=== PATIENT | female | born 1975 | race Hispanic/Latino ===

== ENCOUNTER 2018-11-21 20:24 | Inpatient (IN) | payer OTHER, SELFPAY ==
[~2018-11-21 20:24] MED LIST: Iopamidol 370 76% 100 ML VIAL ONE
[2018-11-21] MEDS ORDERED: Ondansetron ODT 4 MG TAB ONE (20:37)
[2018-11-21 20:58] LABS: Bacteria/HPF None Seen HPF (None Seen); Bilirubin Negative (Negative); Blood, Urine Negative (Negative); Clarity Clear (Clear); Glucose, Urine (Dipstick) Greater than 1000 mg/dL (Negative); Leukocyte Negative Leu/uL (Negative); Nitrite Negative (Negative); Protein, Urine (Dipstick) 50 mg/dL (Neg-Trace)
[2018-11-21 21:21] LABS: #Lymphocytes 1.6 thou/uL (1.20-3.40); #Monocytes 0.6 thou/uL (0.11-0.59); #Neutrophils 13.1 thou/uL (1.40-6.50); %Basophils 0.3 % (0.0-1.0); %Eosinophils 0.1 % (0.0-10.0); %Lymphocytes 10.6 % (21.0-51.0); %Monocytes 3.9 % (0.0-10.0); %Neutrophils 85.1 % (42.0-75.0); Hemoglobin 8.6 g/dL (12.0-16.0); Hypochromia MODERATE=16-30 cells (100X) (0-5/hpf); MDiff Complete? YES; Mean Corpuscular HGB CONC 28.8 g/dL (32.0-36.0); Mean Corpuscular Hemoglobin 17.9 pg (27.0-31.0); Mean Corpuscular Volume 62.1 fL (78.0-98.0); Mean Platelet Volume 8.4 fL (7.4-10.4); Microcytosis SLIGHT = 6-15 cells (100X) (0-5/hpf); Platelet Count 156 thou/uL (130-400); Platelet Morphology Comment Appears Adequate; RBC Distribution Width 19.7 % (11.5-14.5); Red Blood Cell (RBC) Count 4.82 mill/uL (4.20-5.40); Reflex for Review?? YES; White Blood Cell (WBC) Count 15.3 thou/uL (4.8-10.8)
[2018-11-21 21:22] LABS: ALT (SGPT) 30 U/L (8-55); AST (SGOT) 20 U/L (5-34); Albumin 4.4 g/dL (3.5-5.0); Alkaline Phosphatase 116 U/L (40-150); Anion Gap 14 mmol/L (10-20); BUN (Urea Nitrogen) 9 mg/dL (7.0-18.7); Bilirubin, Total 0.9 mg/dL (0.2-1.2); Calc. Creatinine Clearance 0 mL/min (70-130); Calcium 9.4 mg/dL (7.8-10.44); Carbon Dioxide 22 mmol/L (22-29); Chloride 100 mmol/L (98-107); Estimated GFR-MDRD 90; Globulin 4.6 g/dL (2.4-3.5); Glucose 205 mg/dL (70-105); Lipase 5 U/L (8-78); Potassium 3.6 mmol/L (3.5-5.1); Sodium 132 mmol/L (136-145)
[2018-11-21 21:54] LABS: BHCG - Serum Negative (NEGATIVE); Pregs Control Background? CLEAR/WHITE (CLR/WHITE); Pregs Control Bar Appear? YES (CONTROL BAR)
[2018-11-21] MEDS ORDERED: Morphine 4 MG/ML VIAL ONE (22:07)
--- NOTE | 2018-11-21 22:26 | CT ---
CT Abdomen Pelvis W Con History: Right lower quadrant pain Comparison: None. Findings: Lung bases are clear. No pericardial effusion. Diffuse hepatic steatosis. Spleen pancreas adrenal glands are unremarkable. The appendix is dilated with periappendiceal inflamm ation. No evidence for a macro perforation. No free air. No periappendiceal collection. The appendix extends first craniad before turning posterior and caudad in the pelvis deep to the ceca l apex abutting the right ovary. Impression: Acute appendicitis as described. No evidence for macroperforation. The appendix extends f irst craniad before turning posterior and caudad in the pelvis deep to the cecal apex abutting the right ovary.
[2018-11-21] MEDS ORDERED: Piperacillin/Tazobactam 4.5 GM VIAL ONE (22:50)
[2018-11-21] MEDS ORDERED: hydrALAZINE 20 MG/ML VIAL SLOW IVP PRN (23:50)
[2018-11-21] MEDS ORDERED: Dextrose 50% Abboject 50 ML SYRINGE SLOW IVP PRN (23:50)
[2018-11-21] MEDS ORDERED: Promethazine HCl 25 MG/ML VIAL IM PRN (23:50)
[2018-11-21] MEDS ORDERED: Dextrose 5% in Water 1,000 ML IV PRN (23:50)
[2018-11-21] MEDS ORDERED: Acetaminophen 325 MG TAB PO PRN (23:50)
[2018-11-21] MEDS ORDERED: Morphine 2 MG/ML SYRINGE SLOW IVP PRN (23:50)
[2018-11-21] MEDS ORDERED: Ondansetron PF 4 MG/2 ML Vial IVP PRN (23:50)
[2018-11-21] MEDS ORDERED: Piperacillin/Tazobactam 3.375 GM in Sodium Chloride 0.9% 100 ML IVPB SCH (23:59)
--- NOTE | 2018-11-22 00:18 | HP ---
This is Hiren Moy PA-C dictating a report for Shun Daniel DO. REQUESTING PHYSICIAN: Abraham Sanchez MD ATTENDING SURGEON: Shun Daniel DO HISTORY OF PRESENT ILLNESS: The patient is a 42-year-old woman, who presented to the emergency department with a 3-day onset of abdominal pain that over the past few days has increased. Yesterday, the patient's pain settled in her right lower quadrant and she started having some nausea and vomiting. Denies fever or chills. Denies other ill contacts. Does have some anorexia secondary to her nausea. The patient underwent evaluation here and was noted to have acute appendicitis by CT at which time we were asked to evaluate the patient for admission and discuss surgical options. ALLERGIES: NONE. CURRENT MEDICATIONS: None. The patient should be on metformin, but she is currently noncompliant. PAST MEDICAL HISTORY: Type 2 diabetes. PAST SURGICAL HISTORY: x4. SOCIAL HISTORY: The patient denies drug, tobacco, or alcohol use. She lives at home with family. REVIEW OF SYSTEMS: 10-point review of systems is negative as otherwise stated. PHYSICAL EXAMINATION: VITAL SIGNS: Blood pressure 135/81, heart rate 90, respirations 18, oxygen saturation 100% on room air, and temperature is 98.8. GENERAL: The patient is resting comfortably in bed. She is awake, alert, conversant. The patient speaks adequate Norwegian, supervisor coin machine was not required. HEENT: Head is normocephalic, atraumatic. Eyes, extraocular motion intact. PERRLA bilaterally. Ears are atraumatic without discharge. Nose is atraumatic without discharge. Oropharynx is clear. NECK: Nontender. Trachea is midline. Neck is supple. There is no lymphadenopathy. LUNGS: Clear to auscultation with good inspiratory and expiratory effort. HEART: Regular rate and rhythm. ABDOMEN: Soft, flat, tender in the right lower quadrant, both with palpation and rebound with slight Rovsing sign. EXTREMITIES: Neurovascularly intact x4. LABORATORY FINDINGS: White blood cell count 15.3, hemoglobin 8.6, hematocrit 29.9, platelets 156. Sodium 132, potassium 3.6, chloride 100, CO2 of 22, BUN 9, creatinine 0.71, glucose 205, bilirubin 0.9, AST 20, ALT 30, alkaline phosphatase 116. Urinalysis is positive for glucose and ketones. RADIOGRAPHIC FINDINGS: CT of the abdomen with IV contrast shows that the appendix is dilated with periappendiceal inflammation. There is no evidence of macroperforation. No free air. No periappendiceal collection. ASSESSMENT AND PLAN: 1. Acute appendicitis. 2. Type 2 diabetes, noncompliant. 3. Anemia. Review of her medical records appears that this is chronic in nature. Plan be to admit the patient to the surgical floor. She will remain n.p.o. with plans of laparoscopic appendectomy tomorrow. We will have pain control, pulmonary toilet, gastritis, and mechanical VTE prophylaxis done. The evaluation, examination, laboratory, and radiographic findings were discussed with Dr. Daniel prior to this dictation. All the patient's questions were answered during my examination also. Job ID: [id number]
[2018-11-22] MEDS: Ketorolac Tromethamine 30 MG/ML VIAL IVP SCH ×2 (00:39→05:40)
[2018-11-22] MEDS: Piperacillin/Tazobactam 3.375 GM in Sodium Chloride 0.9% 100 ML IVPB SCH ×2 (05:41→11:54)
[2018-11-22] MEDS: Insulin Regular 300 UNITS/3 ML VIAL SC PRN ×2 (05:54→12:26)
[2018-11-22 06:16] LABS: #Lymphocytes 1.6 thou/uL (1.20-3.40); #Monocytes 0.5 thou/uL (0.11-0.59); #Neutrophils 9.5 thou/uL (1.40-6.50); %Basophils 0.2 % (0.0-1.0); %Eosinophils 0.2 % (0.0-10.0); %Monocytes 4.2 % (0.0-10.0); %Neutrophils 81.4 % (42.0-75.0); Hemoglobin 7.5 g/dL (12.0-16.0); Mean Corpuscular HGB CONC 28.9 g/dL (32.0-36.0); Mean Corpuscular Hemoglobin 18.1 pg (27.0-31.0); Mean Corpuscular Volume 62.4 fL (78.0-98.0); Mean Platelet Volume 9.1 fL (7.4-10.4); Platelet Count 128 thou/uL (130-400); RBC Distribution Width 19.5 % (11.5-14.5); Red Blood Cell (RBC) Count 4.15 mill/uL (4.20-5.40); White Blood Cell (WBC) Count 11.7 thou/uL (4.8-10.8)
[2018-11-22 06:34] LABS: Anion Gap 10 mmol/L (10-20); BUN (Urea Nitrogen) 9 mg/dL (7.0-18.7); Calc. Creatinine Clearance 132 mL/min (70-130); Calcium 8.5 mg/dL (7.8-10.44); Carbon Dioxide 23 mmol/L (22-29); Chloride 105 mmol/L (98-107); Estimated GFR-MDRD Greater than 90; Glucose 198 mg/dL (70-105); Potassium 3.6 mmol/L (3.5-5.1); Sodium 134 mmol/L (136-145)
[2018-11-22] MEDS: Famotidine 20 MG TAB PO SCH ×2 (07:09→08:31)
[2018-11-22] MEDS ORDERED: Famotidine/PF 20 mg/2ml Vial SLOW IVP SCH (09:00)
[2018-11-22] MEDS ORDERED: Bupivacaine 0.25% HCL 30 ML VIAL ONE (09:48)
[2018-11-22] MEDS ORDERED: Bupivacaine/Epinephrine 0.25% 30 ML VIAL ONE (09:49)
[2018-11-22] MEDS ORDERED: Midazolam HCl 2 mg/2 ml Vial ONE (09:51)
[2018-11-22] MEDS ORDERED: Fentanyl 100 MCG/2 ML VIAL ONE ×2 (09:51→11:44)
[2018-11-22] MEDS ORDERED: Piperacillin/Tazobactam 3.375 GM VIAL ONE (10:40)
[2018-11-22] MEDS ORDERED: traMADol HCl 50 MG TAB PO PRN ×2 (11:11)
[2018-11-22] MEDS ORDERED: Ibuprofen 600 MG TAB PO PRN (11:11)
[2018-11-22] MEDS ORDERED: Acetaminophen 325 MG TAB PO PRN (11:12)
[2018-11-22] MEDS ORDERED: Acetaminophen 500 MG TAB PO PRN (11:17)
[2018-11-22] MEDS ORDERED: Promethazine HCl 25 MG/ML VIAL SLOW IVP PRN (11:31)
[2018-11-22] MEDS ORDERED: Ondansetron HCl/PF 4 MG/2 ML Vial IVP PRN (11:31)
[2018-11-22] MEDS ORDERED: Promethazine HCl 25 MG/ML VIAL IM PRN (11:31)
--- NOTE | 2018-11-22 14:03 | OP ---
DATE OF PROCEDURE: 11/22/2018 PREOPERATIVE DIAGNOSIS: Acute appendicitis. POSTOPERATIVE DIAGNOSIS: Acute appendicitis. PROCEDURE PERFORMED: Laparoscopic appendectomy. ANESTHESIA: General endotracheal. ESTIMATED BLOOD LOSS: 10 mL. FLUIDS GIVEN: 250 mL of crystalloids. SPONGE AND INSTRUMENT COUNTS: Verified as correct x2. COMPLICATIONS: None apparent at the time of operation. INDICATIONS FOR OPERATION: A 42-year-old woman, presented with insidious onset periumbilical abdominal pain, which settled in the right lower quadrant. Clinical radiographic examination was consistent with acute appendicitis, for which the patient was brought to the operating room for appendectomy. Findings are consistent with suppurative, but nonperforated appendix in a retrocecal position. DESCRIPTION OF PROCEDURE: Informed consent was obtained from the patient, who was brought to the operating room and placed in supine position. Following general anesthesia, abdomen was sterilely prepped and draped in usual fashion. The skin below the umbilicus was infiltrated with 0.25% Marcaine with epinephrine. A small curvilinear infraumbilical incision was made using 11 scalpel. Umbilical stalk was grasped with Jess and elevated. Veress needle was inserted through the incision and placed in the peritoneal cavity through which the abdomen was insufflated with 3 L of CO2 gas. Intraabdominal pressure noted at 2 mmHg. Following abdominal insufflation, Veress needle was removed and a 5-mm trocar introduced using a Visiport under laparoscopy. Laparoscopy confirmed proper placement of the port. No injuries to underlying structures. Additional laparoscopy reveals the right lower quadrant obscured by omental adhesions. Under direct laparoscopy, two 5-mm suprapubic and left lower quadrant ports were placed after the overlying skin infiltrated with 0.25% Marcaine with epinephrine. Appropriate incision was made. The patient was placed in a Trendelenburg position, rotated to her left. I introduced a Prestige grasper through the left lower quadrant port site using this to bluntly take down omental adhesions to reveal suppurative retrocecal appendix. I was able to run the distal ileum down to proximal 2 feet from the ileocecal junction. I did not find any Meckel's diverticulum. At this juncture, an Endo [employer] [place] [employer] forceps was introduced through the suprapubic port site grasping the appendix, which was elevated. The mesoappendix was then serially divided down to the base using the LigaSure device with good hemostasis. The appendix itself was divided at the appendiceal-cecal junction between Endoloop. The appendix was delivered off the abdominal cavity using an Endo Catch. Operative site was inspected for good hemostasis. Finding no other pathology, laparoscopy was terminated. Abdomen was desufflated. All ports and instruments were removed and accounted for. Skin incisions were closed using 4-0 Monocryl suture in subcuticular fashion. Dermabond was applied over incisional closure. The patient tolerated this operation without any apparent complication and was returned to recovery room in satisfactory condition. Job ID: [id number]
[2018-11-22 15:02] VITALS: TEMP 97.4
[2018-11-22 15:05] VITALS: BP 121/58
--- NOTE | 2018-11-23 03:06 | DIS ---
DATE OF ADMISSION: 11/21/2018 DATE OF DISCHARGE: 11/22/2018 ADMITTING DIAGNOSIS: Acute appendicitis. DISCHARGE DIAGNOSIS: Acute appendicitis. OPERATION AND PROCEDURES: Laparoscopic appendectomy on 11/22/2018. HISTORY AND HOSPITAL COURSE: A 42-year-old woman presented with abdominal pain. Clinical and radiographic examination were consistent with acute appendicitis for which the patient was brought to the operating room today for laparoscopic appendectomy. Following surgery, the patient is admitted to surgical floor. Hours later, she is ambulating with minimum difficulty. The pain is adequately controlled on oral analgesics. She is tolerating diet. Incisional wound remains intact, clean, and dry. There was no evidence of perforation noted in surgery. The patient received perioperative antibiotics. DISCHARGE INSTRUCTIONS: She will be discharged home with the following instructions: 1. She follows up with me in the Surgery Clinic on 12/01 at 2:30 p.m. 2. She may take Tylenol 1000 mg p.o. q.6 hours p.r.n. pain, alternating this with ibuprofen 600 mg p.o. q.8 hours p.r.n. pain. She was also given a prescription for tramadol 50 mg #20 to be taken 1 to 2 p.o. q.6 hours p.r.n. breakthrough pain. 3. The patient is to call me with any questions or problems including exacerbation of abdominal pain, intolerance to oral intake, fever in excess of 101 degrees Fahrenheit, or any abnormal drainage from the incisional wound. 4. She may shower effective 11/23/2018. 5. She is to avoid weight lifting in excess of 20 pounds until she has been released by me. 6. She is to avoid soaking herself in a bathtub or swimming until she has been released by me. 7. Instructions given to the patient in the presence of her daughter. She indicates understanding information given. 8. The patient has expressed gratitude for the care rendered to her during this hospitalization and surgery. Job ID: [id number]
== END 2018-11-22 15:44 | disposition home or self-care (01) | DRG 343 ==
LOC: ERS 20:24 → 3SE 22:52
PROVIDERS: ADMIT Surgery; ATTEND Surgery
PROC: 0DTJ4ZZ Resection of Appendix, Percutaneous Endoscopic Approach (ICD-10-PCS; principal; 2018-11-22)
DX: K35.80 Unspecified acute appendicitis (principal); E11.9 Type 2 diabetes mellitus without complications; D64.9 Anemia, unspecified; Z91.14 Patient's other noncompliance with medication regimen; Z98.890 Other specified postprocedural states
CPT/HCPCS: 36415; 36416; 74177; 80048; 80053; 81003; 81015; 83690; 84703; 85025; 85060; 88304; 96361; 96365; 96375; J0360; J1815; J1885; J2250; J2270; J2543; J3010; J3490; Q0162; Q9967; S0020; S0028